=== PATIENT | male | born 1995 | race Two or more races ===

== ENCOUNTER 2021-01-05 01:37 | Emergency (ER) | payer OTHER ==
[2021-01-05 01:53] VITALS: BP 118/81; PULSE 90; TEMP 98.4; BMI 27.3
[2021-01-05 02:07] LABS: BASO % 1.2 % (0-2.0); EOS % 1.4 % (0-4.5); HEMATOCRIT 47.6 % (35.4-49); LYMPH % 33.1 % (8-40); MCH 27.4 pg (25.7-33.7); MCHC 33.6 g/dl (32.0-35.9); MEAN CELL VOLUME 81.4 fl (80-96); MEAN PLT VOLUME 7.6 fl (7.5-11.1); MONO % 6.6 % (3.8-10.2); NEUT % 57.7 % (42.8-82.8); PLATELET COUNT 273 10^3/uL (134-434); RBC 5.85 M/mm3 (4.00-5.60); WHITE BLOOD COUNT 11.2 K/mm3 (4.0-10.0)
[2021-01-05 02:26] LABS: CALCIUM 9.2 mg/dL (8.5-10.1)
[2021-01-05 02:28] LABS: ALBUMIN 4.1 g/dl (3.4-5.0); BLOOD UREA NITROGEN 19.8 mg/dL (7-18)
[2021-01-05 02:32] LABS: BILIRUBIN,TOTAL 0.3 mg/dL (0.2-1); TOT PROT 7.6 g/dl (6.4-8.2)
[2021-01-05 03:25] LABS: HIV INTERPRETATION NEGATIVE (NEGATIVE)
[2021-01-05] MEDS ORDERED: HIV POST EXPOSURE PROPHYLAXIS KIT NR ONE (06:17)
== END 2021-01-05 06:28 | disposition home or self-care (01) ==
LOC: JER 01:37
DX: Z57.8 Occupational exposure to other risk factors (principal); Z77.21 Contact with and (suspected) exposure to potentially hazardous body fluids
CPT/HCPCS: 36415; 80053; 82977; 83615; 85025; 86704; 86706; 86803; 87340; 87389; 87517; 99283-25